=== PATIENT | male | born 1965 | race American Indian/Alaskan Native ===

== ENCOUNTER 2017-02-24 07:34 | Day surgery (SDC) | payer OTHER ==
[2017-02-24] MEDS ORDERED: NACL 0.9% 500 ML 500 ML IV SCH (08:00)
[2017-02-24 08:17] LABS: Basophils % (Auto) 0.8 % (0.0-1.8); Eosinophils % (Auto) 1.1 % (0.0-4.3); Hematocrit 43.5 % (35.5-45.6); Hemoglobin 14.7 gm/dl (11.8-15.2); Mean Corpuscular HGB Conc 34 % (32-34); Mean Corpuscular Hemoglobin 29 pg (28-32); Mean Corpuscular Volume 85 fl (84-94); Platelet Count 218 K/mm3 (140-440); Red Blood Count 5.13 M/mm3 (3.65-5.03); Red Cell Distribution Width 14.1 % (13.2-15.2); White Blood Count 6.4 K/mm3 (4.5-11.0)
[2017-02-24 08:30] LABS: Anion Gap 15 mmol/L; Blood Urea Nitrogen 11 mg/dL (9-20); Carbon Dioxide 25 mmol/L (22-30); Chloride 105.2 mmol/L (98-107); Glucose 89 mg/dL (75-100); Potassium 4.1 mmol/L (3.6-5.0); Sodium 141 mmol/L (137-145)
[2017-02-24 08:56] LABS: INR 1.06 (0.87-1.13)
[2017-02-24] MEDS ORDERED: HEPARIN/NS 5000 UNIT/500ML(CATH LAB) 1,000 ML IR ONE (09:05)
[2017-02-24] MEDS ORDERED: NITROGLYCERIN SYRINGE 0 ML ONE (09:05)
[2017-02-24] MEDS ORDERED: CALAN ONE (09:05)
[2017-02-24] MEDS ORDERED: HEPARIN 10,000 UNITS/10 ML ONE (09:05)
[2017-02-24] MEDS: XYLOCAINE 2% INFILTRATI ONE ×2 (09:27→09:35)
[2017-02-24] MEDS: VERSED ONE ×2 (09:27→09:35)
[2017-02-24] MEDS: SUBLIMAZE ONE ×2 (09:27→09:35)
[2017-02-24] MEDS ORDERED: ULTRAM PO PRN (09:56)
--- NOTE | 2017-02-24 09:59 | Discharge Summary ---
Short Stay Discharge Plan Activity: advance as tolerated Weight Bearing Status: Partial Weight Bearing Diet: low fat, low cholesterol, low salt Wound: keep clean and dry Special Instructions: smoking cessation, no heavy lifting (3 days) Follow up with: JONAH NOGUEIRA MD [Primary Care Provider] - 7 Days CAMILLE SOL MD [Staff Physician] - 7 Days
[2017-02-24] MEDS ORDERED: NACL 0.9% 1000 ML 1,000 ML IV SCH (10:00)
[2017-02-24 14:06] VITALS: BP 124/72
--- NOTE | 2017-02-24 14:29 | Cardiac Catherization Report ---
REASON FOR PROCEDURE: Chest pain and abnormal stress test. PROCEDURE: The patient was prepped and draped in a sterile fashion after informed consent. Right femoral artery was entered using the Seldinger technique followed by placement of a 6-Eritre[place] sheath. Selective left and right coronary angiography was performed using #4 right and left Cindi catheters. The pigtail catheter was used for left ventricle angiography. The catheters were removed, sheath removed, and hemostasis achieved using an Angio-Seal device. The patient was returned to the post-procedure unit in stable condition. There were no complications. FINDINGS: HEMODYNAMICS: Left ventricle end-diastolic pressure was 17, following coronary angiography. Ascending aortic pressure was 122/73. There was no significant pressure gradient on pullback across the aortic valve. CORONARY ANGIOGRAPHY: The left main coronary artery was angiographically normal. The left anterior descending artery and the diagonal branches were free of significant disease. The circumflex artery was a large system, codominant with the right coronary artery. This vessel and its obtuse marginal branches were free of significant disease. The right coronary artery was small, as noted codominant with the circumflex, and also angiographically normal. Left ventricle was at the upper limits of normal in size. Left ventricular systolic function was at lower limits of normal with estimated ejection fraction 45%-50%. CONCLUSION: 1. No significant coronary artery disease, essentially angiographically normal coronary arteries. 2. Circumflex and right coronary arteries are codominant. 3. Left ventricular systolic function at the lower limits of normal, estimated ejection fraction 45%-50%. RECOMMENDATION: Risk factor modification and medical therapy. [facility]# [id number] DWIGHT/NTS
== END 2017-02-24 13:37 | disposition home or self-care (01) ==
LOC: OPU 07:34
PROVIDERS: ATTEND Internal Medicine Cardiovascular Disease
DX: R94.39 Abnormal result of other cardiovascular function study (principal); R07.9 Chest pain, unspecified; Z88.0 Allergy status to penicillin
CPT/HCPCS: 36415; 80048; 85025; 85610; 85730; 93005; 93010; 93458; C1760; C1894; J1644; J2250; J3010; J7030; J7040; Q9967